=== PATIENT | female | born 1990 | race Two or more races ===

== ENCOUNTER 2017-01-05 19:29 | Observation (INO) | payer MEDICAID ==
[2017-01-05 21:19] LABS: BASO % 0.1 % (0-2); EOS % 1.3 % (0-7); EOSINOPHIL ABSOLUTE COUNT 0.1 tho/cmm (0.0-0.7); HCT-HEMATOCRIT 34.8 % (34.0-49.0); HGB-HEMOGLOBIN 11.9 gm/dl (12.0-15.5); IMMATURE GRANULOCYTES ABSOLUTE 0.03 tho/cmm (0-0.03); IMMATURE GRANULOCYTES PERCENT 0.3 % (0-0.3); LYMPH % 16.4 % (20-45); LYMPH ABSOLUTE COUNT 1.6 tho/cmm (0.8-4.5); MCH (MEAN CORPUSCULAR HGB) 28.7 pg (28.0-32.0); MCHC MEAN CORPUSCULAR HGB CONC 34.2 % (32.0-36.0); MCV (MEAN CELL VOLUME) 84.1 fl (82.0-96.0); MEAN PLATELET VOLUME 10.2 cmc (9.4-12.4); MONO % 4.4 % (0-12); MONOCYTE ABSOLUTE COUNT 0.4 tho/cmm (0.0-1.2); NEUTROPHIL ABSOLUTE COUNT 7.5 tho/cmm (1.6-8.0); NEUTROPHIL-AUTOMATED 7.5 tho/cmm (1.6-8.0); NEUTROPHILS % 77.5 % (40-80); PLATELET COUNT 241 tho/cmm (150-450); RED BLOOD COUNT 4.14 mil/cmm (4.00-5.20); RED CELL DISTRIBUTION WIDTH 13.1 % (12.4-16.4); WHITE BLOOD COUNT 9.7 tho/cmm (4.0-10.0)
[2017-01-05 21:37] LABS: ALB/GLOB RATIO 0.5 (0.8-2.0); ALBUMIN 2.2 g/dl (3.5-5.0); ALKALINE PHOSPHATASE 115 U/L (33-138); ALT/SGPT 14 U/L (12-78); ANION GAP 13 mmol/L (0-20); AST/SGOT 13 U/L (10-40); BILIRUBIN,TOTAL 0.5 mg/dl (0-1.5); BLOOD UREA NITROGEN 5 mg/dl (6-24); CALCIUM 8.1 mg/dl (8.5-10.5); CARBON DIOXIDE-VENOUS 21 mmol/L (22-32); CHLORIDE 108 mmol/l (96-110); GLUCOSE 127 mg/dL (70-110); POTASSIUM 3.3 mmol/L (3.7-5.1); SODIUM 139 mmol/L (135-145); eGFR VALUE FOR BLACK >90 mL/Min
[2017-01-05 21:44] LABS: URINE BILIRUBIN NEGATIVE (NEG); URINE BLOOD MODERATE (NEG); URINE GLUCOSE (UA) NEGATIVE (NEG); URINE KETONE LARGE (NEG); URINE LEUKOCYTE ESTERASE POSITIVE (NEG); URINE NITRITE NEGATIVE (NEG); URINE PROTEIN SMALL (NEG)
[2017-01-05 21:45] LABS: URINE APPEARANCE CLEAR; URINE COLOR YELLOW
[2017-01-05 21:56] LABS: URINE RBC 0-2 /[HPF] (0-5); URINE WBC 0-4 /[HPF] (0-5)
[2017-01-05] MEDS ORDERED: ALBUTEROL2.5 MG/3 M INH (23:04)
[2017-01-05] MEDS ORDERED: SYMBICORT 160-1 PUFF INH (23:04)
[2017-01-05] MEDS ORDERED: BUSPIRONE HCL10 M2 (23:05)
[2017-01-05] MEDS ORDERED: BUSPIRONE HCL10 M2 PO (23:06)
[2017-01-05] MEDS ORDERED: FLUOXETINE HCL20 M2 PO (23:07)
== END 2017-01-05 22:37 ==
LOC: LDR 19:29
PROVIDERS: ADMIT Obstetrics & Gynecology
DX: O21.2 Late vomiting of pregnancy (principal); O36.8130 Decreased fetal movements, third trimester, not applicable or unspecified; Z3A.35 35 weeks gestation of pregnancy
CPT/HCPCS: J2405; J2550; J7121

== ENCOUNTER 2017-01-21 00:24 | Inpatient (IN) | payer MEDICAID ==
[~2017-01-21 00:24] MED LIST: ALBUTEROL2.5 MG/3 M INH; BUSPIRONE HCL10 M2; BUSPIRONE HCL10 M2 PO; FLUOXETINE HCL20 M2 PO; SYMBICORT 160-1 PUFF INH
[2017-01-21 02:58] LABS: BASO % 0.2 % (0-2); EOSINOPHIL ABSOLUTE COUNT 0.4 tho/cmm (0.0-0.7); HCT-HEMATOCRIT 36.9 % (34.0-49.0); HGB-HEMOGLOBIN 12.5 gm/dl (12.0-15.5); IMMATURE GRANULOCYTES ABSOLUTE 0.03 tho/cmm (0-0.03); IMMATURE GRANULOCYTES PERCENT 0.2 % (0-0.3); LYMPH % 32.1 % (20-45); LYMPH ABSOLUTE COUNT 3.9 tho/cmm (0.8-4.5); MCH (MEAN CORPUSCULAR HGB) 28.5 pg (28.0-32.0); MCHC MEAN CORPUSCULAR HGB CONC 33.9 % (32.0-36.0); MCV (MEAN CELL VOLUME) 84.1 fl (82.0-96.0); MONO % 6.7 % (0-12); MONOCYTE ABSOLUTE COUNT 0.8 tho/cmm (0.0-1.2); NEUTROPHILS % 57.8 % (40-80); PLATELET COUNT 292 tho/cmm (150-450); RED BLOOD COUNT 4.39 mil/cmm (4.00-5.20); RED CELL DISTRIBUTION WIDTH 13.2 % (12.4-16.4)
[2017-01-21] MEDS ORDERED: IBUPROFEN800 M1 PO (21:37)
[2017-01-22 05:40] LABS: BASO % 0.1 % (0-2); EOSINOPHIL ABSOLUTE COUNT 0.3 tho/cmm (0.0-0.7); HCT-HEMATOCRIT 32.1 % (34.0-49.0); HGB-HEMOGLOBIN 10.7 gm/dl (12.0-15.5); IMMATURE GRANULOCYTES ABSOLUTE 0.04 tho/cmm (0-0.03); IMMATURE GRANULOCYTES PERCENT 0.3 % (0-0.3); LYMPH ABSOLUTE COUNT 2.4 tho/cmm (0.8-4.5); MCH (MEAN CORPUSCULAR HGB) 28.4 pg (28.0-32.0); MCHC MEAN CORPUSCULAR HGB CONC 33.3 % (32.0-36.0); MCV (MEAN CELL VOLUME) 85.1 fl (82.0-96.0); MEAN PLATELET VOLUME 10.1 cmc (9.4-12.4); MONO % 7.4 % (0-12); NEUTROPHIL ABSOLUTE COUNT 9.7 tho/cmm (1.6-8.0); NEUTROPHIL-AUTOMATED 9.7 tho/cmm (1.6-8.0); NEUTROPHILS % 72.2 % (40-80); PLATELET COUNT 228 tho/cmm (150-450); RED BLOOD COUNT 3.77 mil/cmm (4.00-5.20); RED CELL DISTRIBUTION WIDTH 13.6 % (12.4-16.4); WHITE BLOOD COUNT 13.5 tho/cmm (4.0-10.0)
[2017-01-23] MEDS ORDERED: PRENATAL-U CAPS1 CAP PO (12:48)
== END 2017-01-23 15:25 | DRG 775 ==
LOC: LDR 00:24 → OBGE 19:04
PROVIDERS: Specialist; ADMIT Obstetrics & Gynecology
PROC: 10E0XZZ Delivery of Products of Conception, External Approach (ICD-10-PCS; principal; 2017-01-21)
DX: O99.344 Other mental disorders complicating childbirth (principal); F32.9 Major depressive disorder, single episode, unspecified; O99.89 Other specified diseases and conditions complicating pregnancy, childbirth and the puerperium; O99.52 Diseases of the respiratory system complicating childbirth; F43.12 Post-traumatic stress disorder, chronic; F41.9 Anxiety disorder, unspecified; R42 Dizziness and giddiness; R55 Syncope and collapse; J45.909 Unspecified asthma, uncomplicated; Z3A.37 37 weeks gestation of pregnancy; Z79.899 Other long term (current) drug therapy; Z37.0 Single live birth
CPT/HCPCS: J2370; J2405; J2590